=== PATIENT | female | born 2000 | race Caucasian/White ===

== ENCOUNTER 2019-10-02 05:03 | Emergency (ER) | payer SELFPAY ==
[2019-10-02 05:25] VITALS: O2SAT 99
[2019-10-02] MEDS ORDERED: Zofran 4 MG/2 ML VIAL IV ONE (05:32)
[2019-10-02] MEDS ORDERED: PROTONIX 40 MG IV IV ONE ×2 (05:32→05:38)
[2019-10-02] MEDS ORDERED: Sodium Chloride 0.9% 1000 ML 1,000 ML IV STA (05:32)
[2019-10-02] MEDS ORDERED: BENADRYL 50 MG/ML IV ONE (05:32)
--- NOTE | 2019-10-02 05:32 | ERPHSYRPT ---
- History of Present Illness Time Seen by Provider: 10/02/19 05:34 Historian: patient Exam Limitations: no limitations Patient Subjective Stated Complaint: "My stomach hurts. Its right in the middle of my back and coming around to the front." Triage Nursing Assessment: Pt presented alert et oriented with obvious distress of pain noted by abdominal guarding. Pt reported acute onset abdominal pain that radiated from her middle back around to the URQ/ULQ. Pt reported associated nasuea and vomiting with a single episode of diarrhea the day prior. Pt denied dysuria. Pupils 3mm reactive. Neck supple non-tender. Symmetrical chest expansion. Heart tones regular/clear S1/S2. Lungs clear with adequate airflow. Abdomen obese non-distended. Bowel sounds present throughout all quadrants. Tenderness noted to palpation of the upper quadrants. Radial pulses equal bilateral. No noted dependent edema. Physician History: "My stomach hurts. Its right in the middle of my back and coming around to the front." Pt reported acute onset abdominal pain that radiated from her middle back around to the URQ/ULQ. Pt reported associated nasuea and vomiting with a single episode of diarrhea the day prior. Pt denied dysuria. No fever, no chills, Timing/Duration: today Quality: cramping Abdominal Pain Onset Location: flank Pain Radiation: LLQ Severity of Pain-Max: moderate Severity of Pain-Current: moderate Associated Symptoms: loss of appetite, nausea, vomiting Previous symptoms: no prior history Allergies/Adverse Reactions: No Known Drug Allergies Allergy (Unverified 10/02/19 05:13) Home Medications: Ibuprofen 1 tab PO DAILY PRN 10/02/19 [History] Sertraline HCl 1 tab PO DAILY 10/02/19 [History] Hx Tetanus, Diphtheria Vaccination/Date Given: Yes Hx Influenza Vaccination/Date Given: No Travel Risk - International Travel Have you traveled outside of the country in past 3 weeks: No - Coronavirus Screening Are you exhibiting any of the following symptoms?: No Close contact with a COVID-19 positive Pt in past 14-21 Days: No - Review of Systems Constitutional: No Symptoms Eyes: No Symptoms Ears, Nose, & Throat: No Symptoms Respiratory: No Symptoms Cardiac: No Symptoms Abdominal/Gastrointestinal: Abdominal Pain, Nausea, Vomiting Genitourinary Symptoms: No Symptoms Musculoskeletal: No Symptoms Skin: No Symptoms Neurological: No Symptoms Endocrine: No Symptoms Hematologic/Lymphatic: No Symptoms Immunological/Allergic: No Symptoms - Past Medical History Psycho-Social History: Depression - Past Surgical History Past Surgical History: No - Social History Smoking Status: Current every day smoker Exposure to second hand smoke: Yes Drug Use: none Patient Lives Alone: No - Female History Hx Now: No - Nursing Vital Signs Nursing Vital Signs: Initial Vital Signs Temperature 97.5 F 10/02/19 05:05 Pulse Rate 75 10/02/19 05:05 Respiratory Rate 20 10/02/19 05:05 Blood Pressure 146/99 10/02/19 05:05 O2 Sat by Pulse Oximetry 99 10/02/19 05:05 Pain Scale Pain Intensity 4 - Physical Exam General Appearance: mild distress Eye Exam: PERRL/EOMI Ears, Nose, Throat Exam: normal ENT inspection Neck Exam: normal inspection Respiratory Exam: normal breath sounds Cardiovascular Exam: regular rate/rhythm Gastrointestinal/Abdomen Exam: soft, tenderness (left flank area) Pelvic Exam: not done Rectal Exam: deferred Back Exam: normal inspection Extremity Exam: normal inspection Neurologic Exam: alert, oriented x 3 Skin Exam: normal color SpO2 Interpretation: normal SpO2: 99 O2 Delivery: Room Air - Course Nursing assessment & vital signs reviewed: Yes Ordered Tests: Active Orders 24 hr Category Date Time Status AMYLASE Stat Lab 10/02/19 05:40 Completed CBC W DIFF Stat Lab 10/02/19 05:40 Completed CMP Stat Lab 10/02/19 05:40 Completed CULTURE,URINE Stat Lab 10/02/19 05:40 Received HCG,QUALITATIVE URINE Stat Lab 10/02/19 05:40 Completed LIPASE Stat Lab 10/02/19 05:40 Completed Lactic Acid Stat Lab 10/02/19 05:43 Completed UA W/RFX UR CULTURE Stat Lab 10/02/19 05:40 Completed Medication Summary Generic Name Dose Route Start Last Admin Trade Name Freq PRN Reason Stop Dose Admin Sodium Chloride 1,000 mls @ 999 mls/hr 10/02/19 05:32 10/02/19 05:42 Sodium Chloride 0.9% 1000 Ml IV 10/02/19 06:32 999 mls/hr .Q1H1M STA Administration Ceftriaxone Sodium/Dextrose 1 g in 50 mls @ 100 mls/hr 10/02/19 06:02 10/02/19 06:07 Rocephin 1 Gm-D5w 50 Ml Bag IV 10/02/19 06:31 100 mls/hr STAT STA 100 mls/hr Administration Discontinued Medications Generic Name Dose Route Start Last Admin Trade Name Kathleen PRN Reason Stop Dose Admin Diphenhydramine HCl 25 mg 10/02/19 05:32 10/02/19 05:41 Benadryl 50 Mg/Ml IV 10/02/19 05:33 25 mg STAT ONE Administration Diphenhydramine HCl Confirm 10/02/19 05:38 Benadryl 50 Mg/Ml Administered 10/02/19 05:39 Dose 50 mg .ROUTE .STK-MED ONE Sodium Chloride Confirm 10/02/19 05:38 Sodium Chloride 0.9% 1000 Ml Administered 10/02/19 05:39 Dose 1,000 mls @ ud .ROUTE .STK-MED ONE Ceftriaxone Sodium/Dextrose Confirm 10/02/19 06:03 Rocephin 1 Gm-D5w 50 Ml Bag Administered 10/02/19 06:04 Dose 1 g in 50 mls @ ud IV .STK-MED ONE Ondansetron HCl 4 mg 10/02/19 05:32 10/02/19 05:41 Zofran 4 Mg/2 Ml Vial IV 10/02/19 05:33 4 mg STAT ONE Administration Ondansetron HCl Confirm 10/02/19 05:38 Zofran 4 Mg/2 Ml Vial Administered 10/02/19 05:39 Dose 4 mg .ROUTE .STK-MED ONE Pantoprazole Sodium 40 mg 10/02/19 05:32 10/02/19 05:41 Protonix 40 Mg Iv IV 10/02/19 05:33 40 mg STAT ONE Administration Pantoprazole Sodium Confirm 10/02/19 05:38 Protonix 40 Mg Iv Administered 10/02/19 05:39 Dose 40 mg IV .STK-MED ONE Lab/Rad Data: Laboratory Result Diagrams 10/02/19 05:40 10/02/19 05:40 Laboratory Results 10/02/19 10/02/19 10/02/19 Range/Units 05:43 05:40 05:40 WBC (4.0-10.5) K/mm3 RBC (4.1-5.4) M/mm3 Hgb (12.0-16.0) gm/dl Hct (35-47) % MCV (78-100) fl MCH (26-32) pg MCHC (32-36) g/dl RDW (11.5-14.0) % Plt Count (150-450) K/mm3 MPV (7.5-11.0) fl Gran % (36.0-66.0) % Eos # (Auto) (0-0.5) Absolute Lymphs (auto) (1.0-4.6) Absolute Monos (auto) (0.0-1.3) Lymphocytes % (24.0-44.0) % Monocytes % (0.0-12.0) % Eosinophils % (0.00-5.0) % Basophils % (0.0-0.4) % Absolute Granulocytes (1.4-6.9) Basophils # (0-0.4) Sodium (137-145) mmol/L Potassium (3.5-5.1) mmol/L Chloride (98-107) mmol/L Carbon Dioxide (22-30) mmol/L Anion Gap (5-15) MEQ/L BUN (7-17) mg/dL Creatinine (0.52-1.04) mg/dL Estimated GFR ML/MIN Glucose (74-106) mg/dL Lactic Acid 0.6 (0.4-2.0) Calcium (8.4-10.2) mg/dL Total Bilirubin (0.2-1.3) mg/dL AST (14-36) U/L ALT (0-35) U/L Alkaline Phosphatase (38-126) U/L Serum Total Protein (6.3-8.2) g/dL Albumin (3.5-5.0) g/dL Amylase (30-110) U/L Lipase (23-300) U/L Urine Color NEAV (YELLOW) Urine Appearance CLOUDY (CLEAR) Urine pH 6.0 (5-6) Ur Specific [place] 1.026 (1.005-1.025) Urine Protein 30 (Negative) Urine Ketones NEGATIVE (NEGATIVE) Urine Blood MODERATE (0-5) Tate/ul Urine Nitrite POSITIVE (NEGATIVE) Urine Bilirubin NEGATIVE (NEGATIVE) Urine Urobilinogen 4 (0-1) mg/dL Ur Leukocyte Esterase LARGE (NEGATIVE) Urine WBC (Auto) >100 (0-5) /HPF Urine RBC (Auto) 3-5 (0-2) /HPF U Epithel Cells (Auto) PACKED (FEW) /HPF Urine Bacteria (Auto) MODERATE (NEGATIVE) /HPF U Non-Squamous Epi Cells RARE (FEW) /HPF Urine Mucus (Auto) MODERATE (NEGATIVE) /HPF Urine Culture Reflexed YES (NO) Urine Glucose NEGATIVE (NEGATIVE) mg/dL Urine HCG, Qual NEGATIVE (Negative) 10/02/19 10/02/19 Range/Units 05:40 05:40 WBC 9.8 (4.0-10.5) K/mm3 RBC 4.91 (4.1-5.4) M/mm3 Hgb 14.2 (12.0-16.0) gm/dl Hct 42.7 (35-47) % MCV 87.0 (78-100) fl MCH 28.9 (26-32) pg MCHC 33.3 (32-36) g/dl RDW 12.9 (11.5-14.0) % Plt Count 164 (150-450) K/mm3 MPV 11.9 H (7.5-11.0) fl Gran % 54.6 (36.0-66.0) % Eos # (Auto) 0.70 H (0-0.5) Absolute Lymphs (auto) 2.96 (1.0-4.6) Absolute Monos (auto) 0.73 (0.0-1.3) Lymphocytes % 30.3 (24.0-44.0) % Monocytes % 7.5 (0.0-12.0) % Eosinophils % 7.2 H (0.00-5.0) % Basophils % 0.4 (0.0-0.4) % Absolute Granulocytes 5.33 (1.4-6.9) Basophils # 0.04 (0-0.4) Sodium 140 (137-145) mmol/L Potassium 3.4 L (3.5-5.1) mmol/L Chloride 108 H (98-107) mmol/L Carbon Dioxide 24 (22-30) mmol/L Anion Gap 10.8 (5-15) MEQ/L BUN 11 (7-17) mg/dL Creatinine 0.82 (0.52-1.04) mg/dL Estimated GFR > 60.0 ML/MIN Glucose 124 H (74-106) mg/dL Lactic Acid (0.4-2.0) Calcium 9.4 (8.4-10.2) mg/dL Total Bilirubin 0.50 (0.2-1.3) mg/dL AST 21 (14-36) U/L ALT 22 (0-35) U/L Alkaline Phosphatase 114 (38-126) U/L Serum Total Protein 7.1 (6.3-8.2) g/dL Albumin 4.0 (3.5-5.0) g/dL Amylase 42 (30-110) U/L Lipase 62 (23-300) U/L Urine Color (YELLOW) Urine Appearance (CLEAR) Urine pH (5-6) Ur Specific [place] (1.005-1.025) Urine Protein (Negative) Urine Ketones (NEGATIVE) Urine Blood (0-5) Tate/ul Urine Nitrite (NEGATIVE) Urine Bilirubin (NEGATIVE) Urine Urobilinogen (0-1) mg/dL Ur Leukocyte Esterase (NEGATIVE) Urine WBC (Auto) (0-5) /HPF Urine RBC (Auto) (0-2) /HPF U Epithel Cells (Auto) (FEW) /HPF Urine Bacteria (Auto) (NEGATIVE) /HPF U Non-Squamous Epi Cells (FEW) /HPF Urine Mucus (Auto) (NEGATIVE) /HPF Urine Culture Reflexed (NO) Urine Glucose (NEGATIVE) mg/dL Urine HCG, Qual (Negative) - Progress Progress: improved Counseled pt/family regarding: lab results, diagnosis, need for follow-up - Departure Departure Disposition: Home Clinical Impression: Pyelonephritis Condition: Stable Critical Care Time: No Referrals: DOCTOR,NO FAMILY [Primary Care Provider] - Instructions: Kidney Infection, Urinary Tract Infection, Adult (DC) Additional Instructions: Discharge/Care Plan SOO HULL was seen on 10/02/19 in the Emergency Room. The patient was counseled regarding Diagnosis,Lab results, Imaging studies, need for follow up and when to return to the Emergency Room. Prescriptions given: Discharge Note I have spoken with the patient and/or caregivers. I have explained the patient's condition, diagnosis and treatment plan based on the information available to me at this time. I have answered the patient's and/or caregiver's questions and a ddressed any concerns. The patient and/or caregivers have as good understanding of the patient's diagnosis, condition and treatment plan as can be expected at this point. The vital signs have been stable. The patient's condition is stable and appropriate for discharge from the emergency department. The patient will pursue further outpatient evaluation with the primary care physician or other designated or consulting physician as outlined in the discharge instructions. The patient and/or caregivers are agreeable to this plan of care and follow-up instructions have been explained in detail. The patient and/or caregivers have received these instruction. The patient/and or caregivers are aware that any significant change in condition or worsening of symptoms should prompt an immediate return to this or the closest emergency department or call 911. SOO HULL was seen on 10/02/19 n the Emergency Room. At that time you were treated for an emergent condition, during your visit Laboratory, Radiology and/or other procedures may have been ordered. It is very important that you follow-up with your Primary Care Physician NO FAMILY DOCTOR within the next 24- 48 hours to review your Emergency Room visit and the final results of testing that was ordered. Some test results such as Urine Cultures, Blood Cultures, and other cultures if ordered will not be finalized for 24-48 hours. If you do not have a Primary Care Provider please call the medical records department at [phone] ext [phone] to obtain a copy of your results or you may sign into our patient portal to obtain these results by visiting us @ [email or web address] and completing the following steps: 1. Click on the Patient Portal link 2. Click the Patient Self Enrollment Link to complete the enrollment form and entering your 3. Once the enrollment form is completed you will receive an email with a tempor rowena ID and password at the email address you provided. 4. Next choose a user name and password. Your user name must be at least 4 characters long and your password must be at least 4 characters long. 5. Choose a security question from the list and provide your answer to the question. If you already have signed into the Health Portal you may access your Health Care Information 07/10 by the following steps: 1. Login to our website @ [email or web address] 2. Enter your original user name and password. FAQS The [facility] Portal is an online tool that contains your Lab Results, Radiology Reports, Visit History, Discharge Instructions and Health Summary Lab and Radiology Results will not be available for 72 hours on the portal. The Portal is a secure site, passwords are encryted and URLs are re-written so they cannot be copied and pasted. You and authorized family members are the only ones who can access your Portal. Also there is a timeout feature that protects your information if you leave the Portal page open. If you have technical difficulty please use the Contact Us link on the page this will allow you to submit any questions you have regarding the Portal or you may contact the Medical Record Department at [phone] ext [phone]. Prescriptions: Smz/Tmp Ds Tablet [Bactrim Ds Tablet] 1 udtab PO BID #20 tablet
[2019-10-02] MEDS ORDERED: BENADRYL 50 MG/ML ONE (05:38)
[2019-10-02] MEDS ORDERED: Zofran 4 MG/2 ML VIAL ONE (05:38)
[2019-10-02] MEDS ORDERED: Sodium Chloride 0.9% 1000 ML 1,000 ML ONE (05:38)
[2019-10-02 05:42] LABS: Absolute Neutrophil Ct (ANC) 5.33 (1.4-6.9); BASOPHIL % 0.4 % (0.0-0.4); Basophil (Absolute #) 0.04 (0-0.4); Eosinophil % 7.2 % (0.00-5.0); Hematocrit 42.7 % (35-47); Hemoglobin 14.2 gm/dl (12.0-16.0); Lymphocyte (Absolute #) 2.96 (1.0-4.6); Lymphocytes % 30.3 % (24.0-44.0); Mean Corpuscular Hemoglobin 28.9 pg (26-32); Mean Corpuscular Hgb Concent. 33.3 g/dl (32-36); Mean Platelet Volume 11.9 fl (7.5-11.0); Monocyte (Absolute #) 0.73 (0.0-1.3); Monocytes % 7.5 % (0.0-12.0); Neutrophil % 54.6 % (36.0-66.0); Platelet Count 164 K/mm3 (150-450); Red Blood Count 4.91 M/mm3 (4.1-5.4); Red Cell Distribution Width 12.9 % (11.5-14.0); White Blood Count 9.8 K/mm3 (4.0-10.5)
[2019-10-02 05:47] LABS: Appearance CLOUDY (CLEAR); Bacteria MODERATE /HPF (NEGATIVE); Bilirubin NEGATIVE (NEGATIVE); Blood MODERATE Ery/ul (0-5); Epithelial Cells PACKED /HPF (FEW); Glucose NEGATIVE (NEGATIVE); Ketones NEGATIVE (NEGATIVE); Leukocyte Esterase LARGE (NEGATIVE); Mucus MODERATE /HPF (NEGATIVE); Nitrite POSITIVE (NEGATIVE); Non-Squamous Epithelial Cells RARE /HPF (FEW); Protein,Urine Dip 30 (Negative); Specific Gravity 1.026 (1.005-1.025); Urobilinogen 4 mg/dL (0-1); WBC >100 /HPF (0-5)
[2019-10-02 05:53] LABS: ALKALINE PHOSPHATASE 114 U/L (38-126); AMYLASE 42 U/L (30-110); ANION GAP 10.8 MEQ/L (5-15); BLOOD UREA NITROGEN 11 mg/dL (7-17); CHLORIDE 108 mmol/L (98-107); Calcium 9.4 mg/dL (8.4-10.2); Carbon Dioxide 24 mmol/L (22-30); Creatinine 1 0.82 mg/dL (0.52-1.04); Glucose 124 mg/dL (74-106); LIPASE 62 U/L (23-300); Potassium 3.4 mmol/L (3.5-5.1); SGOT/AST 21 U/L (14-36); SGPT/ALT 22 U/L (0-35); SODIUM 140 mmol/L (137-145); Total Protein 7.1 g/dL (6.3-8.2)
[2019-10-02] MEDS ORDERED: ROCEPHIN 1 Gm-D5w 50 ml Bag** 1 G/50 ML IVPB IV STA (06:02)
[2019-10-02] MEDS ORDERED: ROCEPHIN 1 Gm-D5w 50 ml Bag** 1 G/50 ML IVPB IV ONE (06:03)
[2019-10-02 06:47] VITALS: BP 138/80; PULSE 86
== END 2019-10-02 06:47 | disposition home or self-care (01) ==
LOC: ED 05:03
DX: N12 Tubulo-interstitial nephritis, not specified as acute or chronic (principal)
CPT/HCPCS: 36000; 36415; 80053; 81001; 82150; 83605; 83690; 84703; 85025; 87077; 87086; 87186; 96360; 96365; 96374; 96375; 99284; J0696; J1200; J2405

== ENCOUNTER 2020-08-07 08:10 | Emergency (ER) | payer OTHER ==
[2020-08-07] MEDS ORDERED: Zofran 4 MG/2 ML VIAL IV ONE (08:30)
[2020-08-07] MEDS ORDERED: MORPHINE SULFATE 2 MG INJ IV ONE (08:30)
[2020-08-07] MEDS ORDERED: Sodium Chloride 0.9% 1000 ML 1,000 ML IV STA (08:30)
[2020-08-07] MEDS ORDERED: Sodium Chloride 0.9% 1000 ML 1,000 ML ONE (08:36)
[2020-08-07] MEDS ORDERED: MORPHINE SULFATE 2 MG INJ ONE (08:36)
[2020-08-07] MEDS ORDERED: Zofran 4 MG/2 ML VIAL ONE (08:36)
--- NOTE | 2020-08-07 08:38 | ERPHSYRPT ---
- History of Present Illness Time Seen by Provider: 08/07/20 08:25 Historian: patient Exam Limitations: no limitations Patient Subjective Stated Complaint: Pt states that she was a cookout last night and ate approx 5 hamburgers and 5 hotdogs and then went home and ate an entire bag of chips and thinks now that she ate too much because she has been vomiting since 0400 Triage Nursing Assessment: Pt brought to the ER by her mother, vitals wnl, rates abd pain as 8/10, no edema, pulses normal, N&V, abdomal pain to the medial upper quadrants Physician History: Patient is a 20-year-old female presents to our emergency department with complaints of abdominal pain nausea and vomiting. Patient states she had 5 hamburgers 5 hotdogs and complete bag of chips. At 4:00 this morning patient abdominal pain started. Patient had nausea and vomiting. Patient states her stools are somewhat loose. No fever. No trauma. Symptoms are constant. Symptoms are moderate in intensity. Abdominal pain described as an ache that is generalized. No specific worsening improving factors. Patient is otherwise generally healthy. Patient voices no other complaints or concerns at this time. Timing/Duration: today Activities at Onset: none Quality: aching Abdominal Pain Onset Location: generalized abdomen Pain Radiation: no radiation Severity of Pain-Max: moderate Severity of Pain-Current: mild Modifying Factors: Improves With: nothing Associated Symptoms: denies symptoms, nausea, vomiting, No chest pain, No fever/chills, No headache, No heartburn, No weakness Previous symptoms: no prior history Allergies/Adverse Reactions: No Known Drug Allergies Allergy (Verified 08/07/20 08:29) Home Medications: No Reportable Medications [No Reported Medications] 08/07/20 [History] Hx Tetanus, Diphtheria Vaccination/Date Given: Yes Hx Influenza Vaccination/Date Given: No Travel Risk - International Travel Have you traveled outside of the country in past 3 weeks: No - Coronavirus Screening Are you exhibiting any of the following symptoms?: No Close contact with a COVID-19 positive Pt in past 14-21 Days: No - Vaccine Status Have you recieved a Covid-19 vaccination: No - Review of Systems Constitutional: No Symptoms, No Fever, No Chills Eyes: No Symptoms Ears, Nose, & Throat: No Symptoms Respiratory: No Symptoms, No Cough, No Dyspnea Cardiac: No Symptoms, No Chest Pain, No Edema, No Syncope Abdominal/Gastrointestinal: No Symptoms, No Abdominal Pain, No Nausea, No Vomiting, No Diarrhea Genitourinary Symptoms: No Symptoms, No Dysuria Musculoskeletal: No Symptoms, No Back Pain, No Neck Pain Skin: No Symptoms, No Rash Neurological: No Symptoms, No Dizziness, No Focal Weakness, No Sensory Changes Psychological: No Symptoms Endocrine: No Symptoms Hematologic/Lymphatic: No Symptoms Immunological/Allergic: No Symptoms All Other Systems: Reviewed and Negative - Past Medical History Pertinent Past Medical History: Yes Neurological History: Seizures Psycho-Social History: Depression - Past Surgical History Past Surgical History: No - Social History Smoking Status: Current every day smoker Exposure to second hand smoke: Yes Drug Use: none Patient Lives Alone: No - Female History Hx Now: No (marana) - Nursing Vital Signs Nursing Vital Signs: Initial Vital Signs Temperature 97.5 F 08/07/20 08:21 Pulse Rate 87 08/07/20 08:21 Blood Pressure 126/97 08/07/20 08:21 O2 Sat by Pulse Oximetry 96 08/07/20 08:21 Pain Scale Pain Intensity 2 - Physical Exam General Appearance: mild distress, alert Eye Exam: PERRL/EOMI, eyes nml inspection Ears, Nose, Throat Exam: normal ENT inspection, pharynx normal, moist mucous membranes Neck Exam: normal inspection, non-tender, supple, full range of motion Respiratory Exam: normal breath sounds, lungs clear, No respiratory distress Cardiovascular Exam: regular rate/rhythm, normal heart sounds Gastrointestinal/Abdomen Exam: soft, No tenderness, No mass Back Exam: normal inspection, normal range of motion, No CVA tenderness, No vertebral tenderness Extremity Exam: normal inspection, normal range of motion, pelvis stable Neurologic Exam: alert, oriented x 3, cooperative, normal mood/affect, nml cerebellar function, sensation nml, No motor deficits Skin Exam: normal color, warm, dry SpO2 Interpretation: normal SpO2: 96 O2 Delivery: Room Air - Course Nursing assessment & vital signs reviewed: Yes - CT Exams Chest CT Interpretation: Tele-radiologist Report (Indeterminate left lung noncalcified micronodules. Nodules are too small for PET scan/CT. Recommend follow-up for Fleischner guidelines) Abdomen/Pelvis CT Interpretation: Tele-radiologist Report (Mild bladder wall thickening without cholelithiasis. Gallbladder sonogram you have further information. Minimal colonic diverticulosis and splenomegaly. Small indeterminate left lower lobe noncalcified nodule. Outside comparison studies recommended if available.) - Radiology Ultrasound Exam Gallbladder Ultrasound: tele radiology report (Cholelithiasis with wall thickening. Rule out chronic cholecystitis. Nonvisualization pancreas and right kidney.) Ordered Tests: Active Orders 24 hr Category Date Time Status IV Insertion STAT Care 08/07/20 08:30 Active ABDOMEN AND PELVIS W CONTRAST [CT] Stat Exams 08/07/20 08:31 Completed CHEST WITHOUT CONTRAST [CT] Stat Exams 08/07/20 10:35 Completed GALLBLADDER [US] Stat Exams 08/07/20 10:34 Completed CBC W DIFF Stat Lab 08/07/20 08:42 Completed CMP Stat Lab 08/07/20 08:42 Completed HCG,QUALITATIVE URINE Stat Lab 08/07/20 09:32 Completed LIPASE Stat Lab 08/07/20 08:42 Completed TROPONIN Q3H Lab 08/07/20 08:42 Completed UA W/RFX UR CULTURE Stat Lab 08/07/20 09:32 Completed Medication Summary Discontinued Medications Generic Name Dose Route Start Last Admin Trade Name Darylq PRN Reason Stop Dose Admin Sodium Chloride 1,000 mls @ 999 mls/hr 08/07/20 08:30 08/07/20 10:21 Sodium Chloride 0.9% 1000 Ml IV 08/07/20 09:30 Infused .Q1H1M STA Infusion Sodium Chloride Confirm 08/07/20 08:36 Sodium Chloride 0.9% 1000 Ml Administered 08/07/20 08:37 Dose 1,000 mls @ ud .ROUTE .STK-MED ONE Morphine Sulfate 2 mg 08/07/20 08:30 08/07/20 08:40 Morphine Sulfate 2 Mg Inj IV 08/07/20 08:31 2 mg STAT ONE Administration Morphine Sulfate Confirm 08/07/20 08:36 Morphine Sulfate 2 Mg Inj Administered 08/07/20 08:37 Dose 2 mg .ROUTE .STK-MED ONE Ondansetron HCl 4 mg 08/07/20 08:30 08/07/20 08:40 Zofran 4 Mg/2 Ml Vial IV 08/07/20 08:31 4 mg STAT ONE Administration Ondansetron HCl Confirm 08/07/20 08:36 Zofran 4 Mg/2 Ml Vial Administered 08/07/20 08:37 Dose 4 mg .ROUTE .STK-MED ONE Lab/Rad Data: Laboratory Result Diagrams 08/07/20 08:42 08/07/20 08:42 Laboratory Results 08/07/20 08/07/20 08/07/20 Range/Units 09:32 09:32 08:42 WBC (4.0-10.5) K/mm3 RBC (4.1-5.4) M/mm3 Hgb (12.0-16.0) gm/dl Hct (35-47) % MCV (78-100) fl MCH (26-32) pg MCHC (32-36) g/dl RDW (11.5-14.0) % Plt Count (150-450) K/mm3 MPV (7.5-11.0) fl Gran % (36.0-66.0) % Eos # (Auto) (0-0.5) Absolute Lymphs (auto) (1.0-4.6) Absolute Monos (auto) (0.0-1.3) Lymphocytes % (24.0-44.0) % Monocytes % (0.0-12.0) % Eosinophils % (0.00-5.0) % Basophils % (0.0-0.4) % Absolute Granulocytes (1.4-6.9) Basophils # (0-0.4) Sodium (137-145) mmol/L Potassium (3.5-5.1) mmol/L Chloride (98-107) mmol/L Carbon Dioxide (22-30) mmol/L Anion Gap (5-15) MEQ/L BUN (7-17) mg/dL Creatinine (0.52-1.04) mg/dL Estimated GFR ML/MIN Glucose (74-106) mg/dL Calcium (8.4-10.2) mg/dL Total Bilirubin (0.2-1.3) mg/dL AST (14-36) U/L ALT (0-35) U/L Alkaline Phosphatase (38-126) U/L Troponin I < 0.012 (0.000-0.034) ng/mL Serum Total Protein (6.3-8.2) g/dL Albumin (3.5-5.0) g/dL Lipase (23-300) U/L Urine Color YELLOW (YELLOW) Urine Appearance SLIGHTLY CLOUDY (CLEAR) Urine pH 7.0 (5-6) Ur Specific Elizabeth 1.017 (1.005-1.025) Urine Protein NEGATIVE (Negative) Urine Ketones NEGATIVE (NEGATIVE) Urine Blood NEGATIVE (0-5) Tate/ul Urine Nitrite NEGATIVE (NEGATIVE) Urine Bilirubin NEGATIVE (NEGATIVE) Urine Urobilinogen NEGATIVE (0-1) mg/dL Ur Leukocyte Esterase SMALL (NEGATIVE) Urine WBC (Auto) 0-2 (0-5) /HPF Urine RBC (Auto) 0-2 (0-2) /HPF U Epithel Cells (Auto) FEW (FEW) /HPF Urine Bacteria (Auto) FEW (NEGATIVE) /HPF Urine Mucus (Auto) SLIGHT (NEGATIVE) /HPF Urine Culture Reflexed NO (NO) Urine Glucose NEGATIVE (NEGATIVE) mg/dL Urine HCG, Qual NEGATIVE (Negative) 08/07/20 08/07/20 Range/Units 08:42 08:42 WBC 6.1 (4.0-10.5) K/mm3 RBC 5.26 (4.1-5.4) M/mm3 Hgb 15.1 (12.0-16.0) gm/dl Hct 45.9 (35-47) % MCV 87.3 (78-100) fl MCH 28.7 (26-32) pg MCHC 32.9 (32-36) g/dl RDW 12.7 (11.5-14.0) % Plt Count 167 (150-450) K/mm3 MPV 12.0 H (7.5-11.0) fl Gran % 58.5 (36.0-66.0) % Eos # (Auto) 0.30 (0-0.5) Absolute Lymphs (auto) 1.65 (1.0-4.6) Absolute Monos (auto) 0.57 (0.0-1.3) Lymphocytes % 27.0 (24.0-44.0) % Monocytes % 9.3 (0.0-12.0) % Eosinophils % 4.9 (0.00-5.0) % Basophils % 0.3 (0.0-0.4) % Absolute Granulocytes 3.56 (1.4-6.9) Basophils # 0.02 (0-0.4) Sodium 139 (137-145) mmol/L Potassium 4.2 (3.5-5.1) mmol/L Chloride 103 (98-107) mmol/L Carbon Dioxide 26 (22-30) mmol/L Anion Gap 13.9 (5-15) MEQ/L BUN 11 (7-17) mg/dL Creatinine 0.80 (0.52-1.04) mg/dL Estimated GFR > 60.0 ML/MIN Glucose 121 H (74-106) mg/dL Calcium 9.5 (8.4-10.2) mg/dL Total Bilirubin 0.30 (0.2-1.3) mg/dL AST 24 (14-36) U/L ALT 37 H (0-35) U/L Alkaline Phosphatase 83 (38-126) U/L Troponin I (0.000-0.034) ng/mL Serum Total Protein 7.1 (6.3-8.2) g/dL Albumin 4.5 (3.5-5.0) g/dL Lipase 35 (23-300) U/L Urine Color (YELLOW) Urine Appearance (CLEAR) Urine pH (5-6) Ur Specific Elizabeth (1.005-1.025) Urine Protein (Negative) Urine Ketones (NEGATIVE) Urine Blood (0-5) Tate/ul Urine Nitrite (NEGATIVE) Urine Bilirubin (NEGATIVE) Urine Urobilinogen (0-1) mg/dL Ur Leukocyte Esterase (NEGATIVE) Urine WBC (Auto) (0-5) /HPF Urine RBC (Auto) (0-2) /HPF U Epithel Cells (Auto) (FEW) /HPF Urine Bacteria (Auto) (NEGATIVE) /HPF Urine Mucus (Auto) (NEGATIVE) /HPF Urine Culture Reflexed (NO) Urine Glucose (NEGATIVE) mg/dL Urine HCG, Qual (Negative) - Progress Progress: improved Progress Note: Patient reassessed. She feels much better. Pain significantly improved. Patient denies pain at this time. Work-up suggestive of possible chronic cholecystitis. Case discussed with Dr. Nacho Saldana. He also agrees that patient likely has chronic cholecystitis. No indication for admission or emergent intervention. He will see patient on an outpatient basis. Dr. Saldana's contact information was provided to patient. Patient requesting discharge. Mother at bedside. They were informed of all findings laboratory and imaging study. Will discharge at this time. Patient/mother voices no other complaints or concerns at this time. 05/24/21 13:[address] Other Will see patient in: office (Spoke to Dr. Nacho Saldana) Counseled pt/family regarding: lab results, diagnosis, need for follow-up, rad results - Departure Departure Disposition: Home Clinical Impression: Lung nodule, Abdominal pain, Diverticulosis, Splenomegaly, Arthritis, lumbar spine, Hyperglycemia, Cholelithiasis, Chronic cholecystitis Condition: Stable Critical Care Time: No Referrals: DOCTOR,NO FAMILY [Primary Care Provider] - NATTY SALDANA MD [ASSOCIATE STAFF] -
[2020-08-07 08:45] LABS: Absolute Neutrophil Ct (ANC) 3.56 (1.4-6.9); BASOPHIL % 0.3 % (0.0-0.4); Basophil (Absolute #) 0.02 (0-0.4); Eosinophil % 4.9 % (0.00-5.0); Hematocrit 45.9 % (35-47); Hemoglobin 15.1 gm/dl (12.0-16.0); Lymphocyte (Absolute #) 1.65 (1.0-4.6); Mean Cell Volume 87.3 fl (78-100); Mean Corpuscular Hemoglobin 28.7 pg (26-32); Mean Corpuscular Hgb Concent. 32.9 g/dl (32-36); Monocyte (Absolute #) 0.57 (0.0-1.3); Monocytes % 9.3 % (0.0-12.0); Neutrophil % 58.5 % (36.0-66.0); Platelet Count 167 K/mm3 (150-450); Red Blood Count 5.26 M/mm3 (4.1-5.4); Red Cell Distribution Width 12.7 % (11.5-14.0); White Blood Count 6.1 K/mm3 (4.0-10.5)
[2020-08-07 08:58] LABS: ALBUMIN 4.5 g/dL (3.5-5.0); ALKALINE PHOSPHATASE 83 U/L (38-126); ANION GAP 13.9 MEQ/L (5-15); BLOOD UREA NITROGEN 11 mg/dL (7-17); CHLORIDE 103 mmol/L (98-107); Calcium 9.5 mg/dL (8.4-10.2); Carbon Dioxide 26 mmol/L (22-30); EST GLOMERULAR FILTRATION RATE > 60.0 ML/MIN; Glucose 121 mg/dL (74-106); LIPASE 35 U/L (23-300); Potassium 4.2 mmol/L (3.5-5.1); SGOT/AST 24 U/L (14-36); SGPT/ALT 37 U/L (0-35); SODIUM 139 mmol/L (137-145); Total Protein 7.1 g/dL (6.3-8.2)
[2020-08-07 09:49] LABS: Appearance SLIGHTLY CLOUDY (CLEAR); Bacteria FEW /HPF (NEGATIVE); Bilirubin NEGATIVE (NEGATIVE); Blood NEGATIVE Ery/ul (0-5); Epithelial Cells FEW /HPF (FEW); Glucose NEGATIVE (NEGATIVE); Ketones NEGATIVE (NEGATIVE); Leukocyte Esterase SMALL (NEGATIVE); Mucus SLIGHT /HPF (NEGATIVE); Nitrite NEGATIVE (NEGATIVE); Protein,Urine Dip NEGATIVE (Negative); RBC 0-2 /HPF (0-2); Specific Gravity 1.017 (1.005-1.025); Urobilinogen NEGATIVE mg/dL (0-1); WBC 0-2 /HPF (0-5)
--- NOTE | 2020-08-07 10:24 | XRAY ---
Indication: Diffuse abdominal pain. Nausea and vomiting. Multiple contiguous axial images obtained through the abdomen and pelvis using Isovue 370 contrast. Comparison: None Lung bases demonstrates 8 x 12 mm medial left lower lobe indeterminant noncalcified nodule. No infiltrate or effusion. Heart is not enlarged. Noncontrasted stomach and bowel loops nonobstructed. Normal appendix. Minimal scattered colonic diverticulosis without diverticulitis. Gallbladder normally distended with wall thickening 4-5 mm but no gallstones or biliary distention. No free fluid/air. Spleen is enlarged measuring 17 cm. Incidental uterine IUD. Remaining liver, pancreas, spleen, adrenal glands, kidneys, ureters, bladder, uterus, and aorta are unremarkable. No pathologic retroperitoneal lymphadenopathy. Osseous structures intact with mild/moderate T12-L1 degenerative degenerative changes. Impression: 1. Gallbladder wall thickening without cholelithiasis. Gallbladder sonogram may yield further information. 2. Minimal colonic diverticulosis and splenomegaly. 3. Small indeterminant left lower lobe noncalcified nodule. Outside comparison studies recommended if available. If not, recommend CT chest to establish baseline with follow-up per Fleischner guidelines.
--- NOTE | 2020-08-07 11:45 | XRAY ---
Indication: Abdomen pain. Cholecystitis. Two-dimensional gallbladder sonogram performed. Comparison: None Gallbladder normally distended with multiple centimeter/subcentimeter gallstones in the dependent portion and wall thickening 3.1 mm. No pericholecystic fluid. Common bile duct measures 4.6 mm. Nonvisualization of the pancreas due to overlying bowel gas. Remaining visualized liver sonographically unremarkable. Sheriff'S Officer did not record images of the right kidney. Impression: 1. Cholelithiasis with wall thickening. Rule out chronic cholecystitis. 2. Nonvisualization pancreas and right kidney.
--- NOTE | 2020-08-07 11:50 | XRAY ---
Indication: Left lower lobe nodule on same-day CT evidence/pelvis. Multiple contiguous axial images obtained through the chest without contrast. Comparison: None Medial left lower lobe demonstrates 8 x 12 mm, 5 mm mid left lower lobe (image 32), and 7 x 8 mm left upper lobe (image 18) indeterminant noncalcified nodules. No infiltrate, consolidation, or effusion. Heart is not enlarged. Aorta normal in course and caliber. No pathologic mediastinal lymphadenopathy. Bony thorax intact. CT abdomen/pelvis reported separately. Impression: 3 indeterminant left lung noncalcified micronodules. Nodules are too small for PET/CT. Recommend follow-up per Fleischner guidelines.
[2020-08-07 13:37] VITALS: BP 128/86; PULSE 75; O2SAT 99
== END 2020-08-07 13:46 | disposition home or self-care (01) ==
LOC: ED 08:10
DX: R91.1 Solitary pulmonary nodule (principal); R10.9 Unspecified abdominal pain; R16.1 Splenomegaly, not elsewhere classified; M46.96 Unspecified inflammatory spondylopathy, lumbar region; R73.9 Hyperglycemia, unspecified; K80.20 Calculus of gallbladder without cholecystitis without obstruction; K81.1 Chronic cholecystitis
CPT/HCPCS: 36000; 36415; 71250; 74177; 76705; 80053; 81001; 83690; 84484; 84703; 85025; 96360; 96374; 96375; 99284; J2270; J2405

== ENCOUNTER 2020-08-13 16:34 | Emergency (ER) | payer OTHER ==
[2020-08-13 16:48] VITALS: BP 121/75; PULSE 84; O2SAT 100
--- NOTE | 2020-08-13 16:50 | ERPHSYRPT ---
- History of Present Illness Time Seen by Provider: 08/13/20 16:45 Source: patient Exam Limitations: no limitations Physician History: pt is 20 yr old female with hx of prior UTIs , none recent, but now with similar symptoms to prior UTI . Dysuria, frequency, and feeling of need to go. No abd pain , but had episode 1 week ago with eval thought to be biliary Dx and with f/u scheduled for that , but no recurence of those symptoms and no abd pain, N, or V , or fever today. No cough or URI symptoms. No Vag discharge or symptoms. Abd is nontender without mass or peritoneal signs on exam today. Timing/Duration: today Activites at Onset: none Quality: burning Onset Location: suprapubic Pain Radiation: none Severity of Pain-Max: mild Severity of Pain-Current: mild Prior abdominal problems: other (Biliary symptoms las week none now.) Sexual intercourse history: non-contributory Modifying Factors: Improves With: nothing Associated Symptoms: dysuria, urinary frequency, No abdominal pain, No fever, No nausea, No vomiting, No vaginal discharge Allergies/Adverse Reactions: No Known Drug Allergies Allergy (Verified 08/13/20 16:48) Hx Tetanus, Diphtheria Vaccination/Date Given: Yes Hx Influenza Vaccination/Date Given: No Travel Risk - Vaccine Status Have you recieved a Covid-19 vaccination: No - Review of Systems Constitutional: No Fever, No Chills Eyes: No Symptoms Ears, Nose, & Throat: No Symptoms Respiratory: No Cough, No Dyspnea Cardiac: No Chest Pain, No Edema, No Syncope Abdominal/Gastrointestinal: No Abdominal Pain, No Nausea, No Vomiting, No Diarrhea Genitourinary Symptoms: Dysuria, Frequency, Urgency Musculoskeletal: No Back Pain, No Neck Pain Skin: No Rash Neurological: No Dizziness, No Focal Weakness, No Sensory Changes Psychological: No Symptoms Endocrine: No Symptoms Hematologic/Lymphatic: No Symptoms Immunological/Allergic: No Symptoms All Other Systems: Reviewed and Negative - Past Medical History Pertinent Past Medical History: Yes Neurological History: Seizures Psycho-Social History: Depression - Past Surgical History Past Surgical History: No - Social History Smoking Status: Current every day smoker Exposure to second hand smoke: Yes Drug Use: none Patient Lives Alone: No - Nursing Vital Signs Nursing Vital Signs: Initial Vital Signs Temperature 97.4 F 08/13/20 16:39 Pulse Rate 84 08/13/20 16:39 Blood Pressure 121/75 08/13/20 16:39 O2 Sat by Pulse Oximetry 100 08/13/20 16:39 Pain Scale Pain Intensity 4 - Physical Exam General Appearance: no apparent distress, alert Eye Exam: PERRL/EOMI, eyes nml inspection Ears, Nose, Throat Exam: normal ENT inspection, TMs normal, pharynx normal, moist mucous membranes Neck Exam: normal inspection, non-tender, supple, full range of motion Respiratory Exam: normal breath sounds, lungs clear, No respiratory distress Cardiovascular Exam: regular rate/rhythm, normal heart sounds, normal peripheral pulses Gastrointestinal/Abdomen Exam: soft, No tenderness, No mass Pelvic Exam: deferred Rectal Exam: deferred Back Exam: normal inspection, normal range of motion, No CVA tenderness, No vertebral tenderness Extremity Exam: normal inspection, normal range of motion, pelvis stable Neurologic Exam: alert, oriented x 3, cooperative, senior commissions analyst II-XII nml as tested, normal mood/affect, sensation nml, No motor deficits Skin Exam: normal color, warm, dry Lymphatic Exam: No adenopathy - Course Nursing assessment & vital signs reviewed: Yes Ordered Tests: Active Orders 24 hr Category Date Time Status CULTURE,URINE Stat Lab 08/13/20 16:53 Received HCG,QUALITATIVE URINE Stat Lab 08/13/20 16:53 Completed UA W/RFX UR CULTURE Stat Lab 08/13/20 16:53 Completed Lab/Rad Data: Laboratory Results 08/13/20 08/13/20 Range/Units 16:53 16:53 Urine Color YELLOW (YELLOW) Urine Appearance CLOUDY (CLEAR) Urine pH 6.0 (5-6) Ur Specific Cartwright 1.006 (1.005-1.025) Urine Protein NEGATIVE (Negative) Urine Ketones NEGATIVE (NEGATIVE) Urine Blood LARGE (0-5) Tate/ul Urine Nitrite NEGATIVE (NEGATIVE) Urine Bilirubin NEGATIVE (NEGATIVE) Urine Urobilinogen NEGATIVE (0-1) mg/dL Ur Leukocyte Esterase LARGE (NEGATIVE) Urine WBC (Auto) >100 (0-5) /HPF Urine RBC (Auto) 51-100 (0-2) /HPF U Epithel Cells (Auto) NONE (FEW) /HPF Urine Bacteria (Auto) RARE (NEGATIVE) /HPF Urine Culture Reflexed YES (NO) Urine Glucose NEGATIVE (NEGATIVE) mg/dL Urine HCG, Qual NEGATIVE (Negative) - Progress Progress: improved, re-examined Air Movement: good Progress Note: 08/13/20 17:17 took pill sounding like keflex capsule green and white ) before with good result Blood Culture(s) Obtained: No Antibiotics given: Yes Counseled pt/family regarding: lab results, diagnosis, need for follow-up - Departure Departure Disposition: Home Clinical Impression: UTI (urinary tract infection) Condition: Good Critical Care Time: No Referrals: DOCTOR,NO FAMILY [Primary Care Provider] - Instructions: Urinary Tract Infection, Adult (DC) Additional Instructions: Followup with your Dr. to retest after antibiotics to confirm resolution of infection. Return meantime if not improving, fever, vomiting, abdominal pain or other concerns. Prescriptions: Cephalexin Mh 500 mg [Keflex 500 mg] 500 mg PO QID #40 capsule Phenazopyridine HCl 200 mg [Pyridium 200 mg] 200 mg PO TID #10 tablet
[2020-08-13 17:04] LABS: Appearance CLOUDY (CLEAR); Bacteria RARE /HPF (NEGATIVE); Bilirubin NEGATIVE (NEGATIVE); Blood LARGE Ery/ul (0-5); Glucose NEGATIVE (NEGATIVE); Ketones NEGATIVE (NEGATIVE); Leukocyte Esterase LARGE (NEGATIVE); Nitrite NEGATIVE (NEGATIVE); Protein,Urine Dip NEGATIVE (Negative); RBC 51-100 /HPF (0-2); Specific Gravity 1.006 (1.005-1.025); Urobilinogen NEGATIVE mg/dL (0-1); WBC >100 /HPF (0-5)
[2020-08-13] MEDS ORDERED: KEFLEX 500 MG PO ONE (17:22)
[2020-08-13] MEDS ORDERED: PYRIDIUM 200 MG ONE (17:23)
[2020-08-13] MEDS ORDERED: KEFLEX 500 MG ONE (17:24)
[2020-08-13] MEDS ORDERED: PYRIDIUM 200 MG PO ONE (17:24)
== END 2020-08-13 17:48 | disposition home or self-care (01) ==
LOC: ED 16:34
DX: N39.0 Urinary tract infection, site not specified (principal)
CPT/HCPCS: 81001; 84703; 87077; 87086; 87186; 99283; A9270-GY

== ENCOUNTER 2020-12-21 14:39 | Emergency (ER) | payer OTHER ==
[2020-12-21] MEDS ORDERED: Sodium Chloride 0.9% 1000 ML 1,000 ML IV STA (15:02)
[2020-12-21 15:26] LABS: Appearance CLOUDY (CLEAR); Bacteria FEW /HPF (NEGATIVE); Bilirubin NEGATIVE (NEGATIVE); Blood NEGATIVE Ery/ul (0-5); Epithelial Cells MODERATE /HPF (FEW); Glucose NEGATIVE (NEGATIVE); Ketones SMALL (NEGATIVE); Leukocyte Esterase SMALL (NEGATIVE); Mucus SLIGHT /HPF (NEGATIVE); Nitrite NEGATIVE (NEGATIVE); Protein,Urine Dip 30 (Negative); Specific Gravity 1.025 (1.005-1.025); Urobilinogen NEGATIVE mg/dL (0-1)
[2020-12-21 15:30] LABS: Hematocrit 52.5 % (35-47); Hemoglobin 18.1 gm/dl (12.0-16.0); Mean Cell Volume 87.4 fl (78-100); Mean Corpuscular Hemoglobin 30.1 pg (26-32); Mean Corpuscular Hgb Concent. 34.5 g/dl (32-36); Mean Platelet Volume 11.9 fl (7.5-11.0); Platelet Count 239 K/mm3 (150-450); Red Blood Count 6.01 M/mm3 (4.1-5.4); Red Cell Distribution Width 12.8 % (11.5-14.0); White Blood Count 14.5 K/mm3 (4.0-10.5)
[2020-12-21 15:39] LABS: ALBUMIN 5.2 g/dL (3.5-5.0); ALKALINE PHOSPHATASE 106 U/L (38-126); ANION GAP 20.6 MEQ/L (5-15); BLOOD UREA NITROGEN 15 mg/dL (7-17); CHLORIDE 106 mmol/L (98-107); Calcium 10.4 mg/dL (8.4-10.2); Carbon Dioxide 20 mmol/L (22-30); Creatinine 1 0.87 mg/dL (0.52-1.04); EST GLOMERULAR FILTRATION RATE > 60.0 ML/MIN; Glucose 111 mg/dL (74-106); LIPASE 75 U/L (23-300); Potassium 4.3 mmol/L (3.5-5.1); SGOT/AST 25 U/L (14-36); SGPT/ALT 31 U/L (0-35); SODIUM 142 mmol/L (137-145)
[2020-12-21] MEDS ORDERED: Sodium Chloride 0.9% 1000 ML 1,000 ML ONE (16:07)
[2020-12-21] MEDS ORDERED: MORPHINE SULFATE 4 MG INJ IV ONE (16:30)
[2020-12-21] MEDS ORDERED: MORPHINE SULFATE 4 MG INJ ONE (16:32)
--- NOTE | 2020-12-21 16:39 | XRAY ---
Indication: Vomiting and diarrhea. Colitis. Multiple contiguous axial images obtained through the abdomen and pelvis using 80 cc Isovue 370 contrast. Comparison: August 07, 2020. Lung bases demonstrates stable small medial left lower lobe indeterminate noncalcified nodule. No infiltrate or effusion. Heart not enlarged. Noncontrasted stomach and bowel loops are nonobstructed. Normal appendix. No free fluid/air. Uterus demonstrates stable IUD. Spleen remains enlarged measuring 15.5 cm. Remaining liver, gallbladder, pancreas, spleen, adrenal glands, kidneys, ureters, bladder, uterus, and aorta are unremarkable for noncontrast exam. Osseous structures intact. Impression: 1. Again incidental splenomegaly and uterine IUD. 2. Stable small indeterminate left lower lobe noncalcified nodule. As suggested on CT chest August 07, 2020, recommend follow-up per Fleischner guidelines. 3. Remaining CT abdomen/pelvis with contrast exam is negative.
[2020-12-21] MEDS ORDERED: GI COCKTAIL 45 ML (Maalox/Lidocaine) PO ONE (16:56)
--- NOTE | 2020-12-21 16:56 | ERPHSYRPT ---
- History of Present Illness Time Seen by Provider: 12/21/20 14:55 Exam Limitations: no limitations Patient Subjective Stated Complaint: " I have been vomiting and having diarrhea since 7am this morning " Triage Nursing Assessment: Pt presents to ER with complaints of diffused upper abdominal pains, diarrhea, and vomiting. Pt states has had several rounds of diarrhea and vomiting since waking up this morning. Pt is alert and oriented x 3. Pt abdomen is soft but tender upon exam. Skin is pink, warm, and dry. Pt appears anxious and is dry heaving upon arrival. Physician History: Patient is a 20-year-old female presents to our ED with complaints of epigastric pain. Patient states that she developed nausea vomiting and diarrhea this morning. Symptoms have been constant. Patient is epigastric pain described as an ache that is well localized. No radiation. Pain- Timing/Duration: today Activities at Onset: none Quality: aching Abdominal Pain Onset Location: epigastric Pain Radiation: no radiation Severity of Pain-Max: moderate Severity of Pain-Current: mild Modifying Factors: Improves With: palpation Associated Symptoms: diarrhea, nausea, vomiting, No fever/chills, No headache, No loss of appetite, No syncope Previous symptoms: no prior history Allergies/Adverse Reactions: No Known Drug Allergies Allergy (Verified 12/21/20 14:56) Hx Tetanus, Diphtheria Vaccination/Date Given: No Hx Influenza Vaccination/Date Given: No Hx Pneumococcal Vaccination/Date Given: No Immunizations Up to Date: No Travel Risk - International Travel Have you traveled outside of the country in past 3 weeks: No - Coronavirus Screening Are you exhibiting any of the following symptoms?: Yes Symptoms: Vomiting/Diarrhea Close contact with a COVID-19 positive Pt in past 14-21 Days: No - Vaccine Status Have you recieved a Covid-19 vaccination: No - Review of Systems Constitutional: No Symptoms, No Fever, No Chills Eyes: No Symptoms Ears, Nose, & Throat: No Symptoms Respiratory: No Symptoms, No Cough, No Dyspnea Cardiac: No Symptoms, No Chest Pain, No Edema, No Syncope Abdominal/Gastrointestinal: No Symptoms, No Abdominal Pain, No Nausea, No Vomiting, No Diarrhea Genitourinary Symptoms: No Symptoms, No Dysuria Musculoskeletal: No Symptoms, No Back Pain, No Neck Pain Skin: No Symptoms, No Rash Neurological: No Symptoms, No Dizziness, No Focal Weakness, No Sensory Changes Psychological: No Symptoms Endocrine: No Symptoms Hematologic/Lymphatic: No Symptoms Immunological/Allergic: No Symptoms All Other Systems: Reviewed and Negative - Past Medical History Pertinent Past Medical History: Yes Neurological History: Seizures Psycho-Social History: Depression - Past Surgical History Past Surgical History: Yes - Social History Smoking Status: Current every day smoker Exposure to second hand smoke: No Drug Use: marijuana Patient Lives Alone: No - Female History Hx Last Menstrual Period: 12/15/20 Hx Now: No - Nursing Vital Signs Nursing Vital Signs: Initial Vital Signs Temperature 96.9 F 12/21/20 14:45 Pulse Rate 131 H 12/21/20 14:45 Respiratory Rate 16 12/21/20 14:45 Blood Pressure 111/80 12/21/20 14:45 O2 Sat by Pulse Oximetry 99 12/21/20 14:45 Pain Scale Pain Intensity 6 - Physical Exam General Appearance: no apparent distress, alert Eye Exam: PERRL/EOMI, eyes nml inspection Ears, Nose, Throat Exam: normal ENT inspection, pharynx normal, moist mucous membranes Neck Exam: normal inspection, non-tender, supple, full range of motion Respiratory Exam: normal breath sounds, lungs clear, airway intact, No respiratory distress Cardiovascular Exam: regular rate/rhythm, normal heart sounds, normal peripheral pulses Gastrointestinal/Abdomen Exam: soft, tenderness (Epigastric tenderness to palpation. Overlying soft tissue intact. No signs of trauma.), No mass, No pulsatile mass Back Exam: normal inspection, normal range of motion, No CVA tenderness, No vertebral tenderness Extremity Exam: normal inspection, normal range of motion, pelvis stable Neurologic Exam: alert, oriented x 3, cooperative, normal mood/affect, sensation nml, No motor deficits Skin Exam: normal color, warm, dry Lymphatic Exam: No adenopathy SpO2 Interpretation: normal SpO2: 100 O2 Delivery: Room Air - Course Nursing assessment & vital signs reviewed: Yes - CT Exams Abdomen/Pelvis CT Interpretation: Tele-radiologist Report (Incidental splenomegaly. IUD. Small stable indeterminate left lower lobe noncalcified nodule. This will require follow-up. Remaining CT abdomen pelvis with contrast is negative.) Ordered Tests: Active Orders 24 hr Category Date Time Status ABDOMEN AND PELVIS W CONTRAST [CT] Stat Exams 12/21/20 15:00 Completed CBC W DIFF Stat Lab 12/21/20 15:07 Results CMP Stat Lab 12/21/20 15:07 Completed CULTURE,URINE Stat Lab 12/21/20 15:00 Received LIPASE Stat Lab 12/21/20 15:07 Completed Manual Differential NC Stat Lab 12/21/20 15:07 Results Pathologist Review Stat Lab 12/21/20 15:07 Results TROPONIN Q3H Lab 12/21/20 15:07 Completed TROPONIN Q3H Lab 12/21/20 18:00 Ordered TROPONIN Q3H Lab 12/21/20 21:00 Ordered TROPONIN Q3H Lab 12/22/20 00:00 Ordered TROPONIN Q3H Lab 12/22/20 03:00 Ordered UA W/RFX UR CULTURE Stat Lab 12/21/20 15:00 Completed Medication Summary Discontinued Medications Generic Name Dose Route Start Last Admin Trade Name Freq PRN Reason Stop Dose Admin Al Hydrox/Mg Hydrox/Simethicone Confirm 12/21/20 17:53 Maalox Es 30 Ml Unit Dose Administered 12/21/20 17:54 Dose 30 ml .ROUTE .STK-MED ONE Sodium Chloride 1,000 mls @ 999 mls/hr 12/21/20 15:02 12/21/20 16:09 Sodium Chloride 0.9% 1000 Ml IV 12/21/20 16:02 999 mls/hr .Q1H1M STA Administration Sodium Chloride Confirm 12/21/20 16:07 Sodium Chloride 0.9% 1000 Ml Administered 12/21/20 16:08 Dose 1,000 mls @ ud .ROUTE .STK-MED ONE Ceftriaxone Sodium/Dextrose 1 g in 50 mls @ 100 mls/hr 12/21/20 16:58 12/21/20 17:55 Rocephin 1 Gm-D5w 50 Ml Bag IV 12/21/20 17:27 100 ml/hr STAT STA 100 mls/hr Administration Ceftriaxone Sodium/Dextrose Confirm 12/21/20 17:53 Rocephin 1 Gm-D5w 50 Ml Bag Administered 12/21/20 17:54 Dose 1 g in 50 mls @ ud IV .STK-MED ONE Lidocaine HCl Confirm 12/21/20 17:53 Xylocaine Hcl Viscous * Administered 12/21/20 17:54 Dose 15 ml .ROUTE .STK-MED ONE Magnesium Hydroxide 45 ml 12/21/20 16:56 12/21/20 17:57 Gi Cocktail 45 Ml (Maalox/Lidocaine) PO 12/21/20 16:57 45 ml STAT ONE Administration Morphine Sulfate 4 mg 12/21/20 16:30 12/21/20 16:33 Morphine Sulfate 4 Mg Inj IV 12/21/20 16:31 4 mg STAT ONE Administration Morphine Sulfate Confirm 12/21/20 16:32 Morphine Sulfate 4 Mg Inj Administered 12/21/20 16:33 Dose 4 mg .ROUTE .STK-MED ONE Lab/Rad Data: Laboratory Result Diagrams 12/21/20 15:07 12/21/20 15:07 Laboratory Results 12/21/20 12/21/20 12/21/20 Range/Units 15:07 15:07 15:07 WBC 14.5 H (4.0-10.5) K/mm3 RBC 6.01 H (4.1-5.4) M/mm3 Hgb 18.1 H (12.0-16.0) gm/dl Hct 52.5 H (35-47) % MCV 87.4 (78-100) fl MCH 30.1 (26-32) pg MCHC 34.5 (32-36) g/dl RDW 12.8 (11.5-14.0) % Plt Count 239 (150-450) K/mm3 MPV 11.9 H (7.5-11.0) fl Smear Path Review Pending Sodium 142 (137-145) mmol/L Potassium 4.3 (3.5-5.1) mmol/L Chloride 106 (98-107) mmol/L Carbon Dioxide 20 L (22-30) mmol/L Anion Gap 20.6 H (5-15) MEQ/L BUN 15 (7-17) mg/dL Creatinine 0.87 (0.52-1.04) mg/dL Estimated GFR > 60.0 ML/MIN Glucose 111 H (74-106) mg/dL Calcium 10.4 H (8.4-10.2) mg/dL Total Bilirubin 0.90 (0.2-1.3) mg/dL AST 25 (14-36) U/L ALT 31 (0-35) U/L Alkaline Phosphatase 106 (38-126) U/L Troponin I < 0.012 (0.000-0.034) ng/mL Serum Total Protein 9.0 H (6.3-8.2) g/dL Albumin 5.2 H (3.5-5.0) g/dL Lipase 75 (23-300) U/L Urine Color (YELLOW) Urine Appearance (CLEAR) Urine pH (5-6) Ur Specific [place] (1.005-1.025) Urine Protein (Negative) Urine Ketones (NEGATIVE) Urine Blood (0-5) Tate/ul Urine Nitrite (NEGATIVE) Urine Bilirubin (NEGATIVE) Urine Urobilinogen (0-1) mg/dL Ur Leukocyte Esterase (NEGATIVE) Urine WBC (Auto) (0-5) /HPF Urine RBC (Auto) (0-2) /HPF U Epithel Cells (Auto) (FEW) /HPF Urine Bacteria (Auto) (NEGATIVE) /HPF Urine Mucus (Auto) (NEGATIVE) /HPF Urine Culture Reflexed (NO) Urine Glucose (NEGATIVE) mg/dL 12/21/20 Range/Units 15:00 WBC (4.0-10.5) K/mm3 RBC (4.1-5.4) M/mm3 Hgb (12.0-16.0) gm/dl Hct (35-47) % MCV (78-100) fl MCH (26-32) pg MCHC (32-36) g/dl RDW (11.5-14.0) % Plt Count (150-450) K/mm3 MPV (7.5-11.0) fl Smear Path Review Sodium (137-145) mmol/L Potassium (3.5-5.1) mmol/L Chloride (98-107) mmol/L Carbon Dioxide (22-30) mmol/L Anion Gap (5-15) MEQ/L BUN (7-17) mg/dL Creatinine (0.52-1.04) mg/dL Estimated GFR ML/MIN Glucose (74-106) mg/dL Calcium (8.4-10.2) mg/dL Total Bilirubin (0.2-1.3) mg/dL AST (14-36) U/L ALT (0-35) U/L Alkaline Phosphatase (38-126) U/L Troponin I (0.000-0.034) ng/mL Serum Total Protein (6.3-8.2) g/dL Albumin (3.5-5.0) g/dL Lipase (23-300) U/L Urine Color NEVA (YELLOW) Urine Appearance CLOUDY (CLEAR) Urine pH 5.0 (5-6) Ur Specific [place] 1.025 (1.005-1.025) Urine Protein 30 (Negative) Urine Ketones SMALL (NEGATIVE) Urine Blood NEGATIVE (0-5) Tate/ul Urine Nitrite NEGATIVE (NEGATIVE) Urine Bilirubin NEGATIVE (NEGATIVE) Urine Urobilinogen NEGATIVE (0-1) mg/dL Ur Leukocyte Esterase SMALL (NEGATIVE) Urine WBC (Auto) 6-10 (0-5) /HPF Urine RBC (Auto) 3-5 (0-2) /HPF U Epithel Cells (Auto) MODERATE (FEW) /HPF Urine Bacteria (Auto) FEW (NEGATIVE) /HPF Urine Mucus (Auto) SLIGHT (NEGATIVE) /HPF Urine Culture Reflexed YES (NO) Urine Glucose NEGATIVE (NEGATIVE) mg/dL - Progress Progress: improved Progress Note: Patient reassessed. Pain significantly improved. Patient tolerating p.o. Patient states is ready for discharge. Patient received IV fluids. Patient has a leukocytosis. She also has a urinary tract infection. Patient received Rocephin IV. We will discharge patient home with prescription for Keflex. Patient requesting discharge at this time. Patient states that she will follow- up with a primary care doctor within 48 hours for reevaluation. She voices no other complaints concerns at this time. Patient is aware of her lung nodule. She is also aware that this will require a follow-up within 3 months time. Patient will require a follow-up CAT scan which will be ordered per her primary care doctor. Portions of this note were created with voice recognition technology. There may be grammatical, spelling, punctuation or sound alike errors 12/21/20 18:24 Counseled pt/family regarding: lab results, diagnosis, need for follow-up, rad results - Departure Departure Disposition: Home Clinical Impression: Lung nodule, Splenomegaly, UTI (urinary tract infection), Epigastric pain, Leukocytosis, Polycythemia, High anion gap metabolic acidosis, N&V (nausea and vomiting), Diarrhea Condition: Stable Critical Care Time: No Referrals: DOCTOR,NO FAMILY [Primary Care Provider] - MARCY HURT MD [ACTIVE STAFF] - Additional Instructions: You will need follow-up of a lung nodule observed on today's CAT scan. Discharge/Care Plan SOO HULL was seen on 12/21/20 in the Emergency Room. The patient was counseled regarding Diagnosis,Lab results, Imaging studies, need for follow up and when to return to the Emergency Room. Prescriptions given: Discharge Note I have spoken with the patient and/or caregivers. I have explained the patient's condition, diagnosis and treatment plan based on the information available to me at this time. I have answered the patient's and/or caregiver's questions and addressed any concerns. The patient and/or caregivers have as good understanding of the patient's diagnosis, condition and treatment plan as can be expected at this point. The vital signs have been stable. The patient's condition is stable and appropriate for discharge from the emergency department. The patient will pursue further outpatient evaluation with the primary care physician or other designated or consulting physician as outlined in the discharge instructions. The patient and/or caregivers are agreeable to this plan of care and follow-up instructions have been explained in detail. The patient and/or caregivers have received these instruction. The patient/and or caregivers are aware that any significant change in condition or worsening of symptoms should prompt an immediate return to this or the closest emergency department or call 911. Prescriptions: Ondansetron ODT 4 MG [Zofran Odt 4 mg] 4 mg PO Q6H PRN PRN #10 tablet PRN Reason: Vomiting
[2020-12-21] MEDS ORDERED: ROCEPHIN 1 Gm-D5w 50 ml Bag** 1 G/50 ML IVPB IV STA (16:58)
[2020-12-21] MEDS ORDERED: ROCEPHIN 1 Gm-D5w 50 ml Bag** 1 G/50 ML IVPB IV ONE (17:53)
[2020-12-21] MEDS ORDERED: MAALOX ES 30 ML UNIT DOSE ONE (17:53)
[2020-12-21] MEDS ORDERED: XYLOCAINE HCl Viscous ONE (17:53)
[2020-12-21 19:10] VITALS: BP 112/74; PULSE 86; O2SAT 98
== END 2020-12-21 19:10 | disposition home or self-care (01) ==
LOC: ED 14:39
DX: R91.1 Solitary pulmonary nodule; R16.1 Splenomegaly, not elsewhere classified; N39.0 Urinary tract infection, site not specified; R10.13 Epigastric pain; D72.829 Elevated white blood cell count, unspecified; D75.1 Secondary polycythemia; E87.2 Acidosis; R11.2 Nausea with vomiting, unspecified; R19.7 Diarrhea, unspecified
CPT/HCPCS: 36000; 36415; 74177; 80053; 81001; 83690; 84484; 85025; 87077; 87086; 87186; 96374; 99284; J0696; J2270; A9270-GY

== ENCOUNTER 2024-04-17 20:19 | Emergency (ER) | payer OTHER ==
--- NOTE | 2024-04-17 20:28 | ERPHSYRPT ---
- History of Present Illness Time Seen by Provider: 04/17/24 20:28 Source: patient, family Exam Limitations: no limitations Physician History: Pt had onset of vomiting with her 2 weeks ago. No vag bleeding or discharge. Discussed with pt and available family risks and benefits of testing/Tx including CBC, CMP, UA, Amylase, Lipase, swabs for Covid, RSV, Flu and zofran after risks/benefits dicussed and IVF, and they wish to proceed so these are ordered. Results discussed with pt and available family. Timing/Duration: day(s), week(s) Severity: moderate Associated Symptoms: nausea, vomiting, No abdominal pain Allergies/Adverse Reactions: No Known Drug Allergies Allergy (Verified 04/17/24 20:23) Home Medications: Doxylamine Succinate [Sleep Aid] 25 mg PO HS 04/17/24 [History] Pnv 119/Iron Fum/Folic Acid [ 19 Tablet] 1 tab PO DAILY 04/17/24 [History] Pyridoxine HCl (Vitamin B6) [Vitamin B6] 25 mg PO DAILY 04/17/24 [History] Hx Tetanus, Diphtheria Vaccination/Date Given: No Hx Influenza Vaccination/Date Given: No Hx Pneumococcal Vaccination/Date Given: No - Review of Systems Constitutional: No Fever, No Chills Eyes: No Symptoms Ears, Nose, & Throat: No Symptoms Respiratory: No Cough, No Dyspnea Cardiac: No Chest Pain, No Edema, No Syncope Abdominal/Gastrointestinal: Nausea, Vomiting, No Abdominal Pain, No Diarrhea Genitourinary Symptoms: No Dysuria Musculoskeletal: No Back Pain, No Neck Pain Skin: No Rash Neurological: No Dizziness, No Focal Weakness, No Sensory Changes Psychological: No Symptoms Endocrine: No Symptoms Hematologic/Lymphatic: No Symptoms Immunological/Allergic: No Symptoms All Other Systems: Reviewed and Negative - Past Medical History Pertinent Past Medical History: Yes Neurological History: Seizures Psycho-Social History: Depression - Past Surgical History Past Surgical History: Yes - Social History Smoking Status: Current every day smoker Exposure to second hand smoke: No Drug Use: marijuana Patient Lives Alone: No - Nursing Vital Signs Nursing Vital Signs: Initial Vital Signs Temperature 98.3 F 04/17/24 20:25 Pulse Rate 123 H 04/17/24 20:25 Respiratory Rate 20 04/17/24 20:25 Blood Pressure 146/104 04/17/24 20:25 O2 Sat by Pulse Oximetry 98 04/17/24 20:25 Pain Scale Pain Intensity 6 - Physical Exam General Appearance: no apparent distress, alert Eye Exam: PERRL/EOMI, eyes nml inspection Ears, Nose, Throat Exam: normal ENT inspection, TMs normal, pharynx normal, moist mucous membranes Neck Exam: normal inspection, non-tender, supple, full range of motion Respiratory Exam: normal breath sounds, lungs clear, No respiratory distress Cardiovascular Exam: regular rate/rhythm, normal heart sounds, normal peripheral pulses Gastrointestinal/Abdomen Exam: soft, normal bowel sounds, No tenderness, No mass Pelvic Exam: deferred Rectal Exam: deferred Back Exam: normal inspection, normal range of motion, No CVA tenderness, No vertebral tenderness Extremity Exam: normal inspection, normal range of motion, pelvis stable Neurologic Exam: alert, oriented x 3, cooperative, normal mood/affect, nml cerebellar function, nml station & gait, sensation nml, No motor deficits Skin Exam: normal color, warm, dry, No rash Lymphatic Exam: No adenopathy SpO2 Interpretation: normal SpO2: 98 O2 Delivery: Room Air - Course Nursing assessment & vital signs reviewed: Yes Ordered Tests: Active Orders 24 hr Category Date Time Status Heart Tones-ED STAT Care 04/17/24 20:43 Active IV Insertion STAT Care 04/17/24 20:41 Active AMYLASE Stat Lab 04/17/24 20:55 Completed CBC W DIFF Stat Lab 04/17/24 20:55 Completed CMP Stat Lab 04/17/24 20:55 Completed CULTURE,URINE Stat Lab 04/17/24 22:09 Received LIPASE Stat Lab 04/17/24 20:55 Completed Lactic Acid Stat Lab 04/17/24 21:00 Completed UA W/RFX UR CULTURE Stat Lab 04/17/24 22:09 Completed Medication Summary Discontinued Medications Generic Name Dose Route Start Last Admin Trade Name Darylq PRN Reason Stop Dose Admin Acetaminophen 1,000 mg 04/17/24 23:19 04/18/24 00:32 Acetaminophen 500 Mg Tablet PO 04/17/24 23:20 1,000 mg STAT STA Administration Acetaminophen Confirm 04/18/24 00:31 Acetaminophen 500 Mg Tablet Administered 04/18/24 00:32 Dose 1,000 mg .ROUTE .STK-MED ONE Sodium Chloride 1,000 mls @ 999 mls/hr 04/17/24 20:41 04/17/24 21:53 Sodium Chloride 0.9% 1000 Ml IV 04/17/24 21:41 Infused .Q1H1M STA Infusion Sodium Chloride Confirm 04/17/24 20:49 Sodium Chloride 0.9% 1000 Ml Administered 04/17/24 20:50 Dose 1,000 mls @ ud .ROUTE .STK-MED ONE Ondansetron HCl 4 mg 04/17/24 20:41 04/17/24 20:52 Ondansetron Hcl 4 Mg/2 Ml Vial IV 04/17/24 20:42 4 mg STAT ONE Administration Ondansetron HCl Confirm 04/17/24 20:49 Ondansetron Hcl 4 Mg/2 Ml Vial Administered 04/17/24 20:50 Dose 4 mg .ROUTE .STK-MED ONE Ondansetron HCl 4 mg 04/17/24 23:19 04/18/24 00:32 Ondansetron Hcl 4 Mg/2 Ml Vial IV 04/17/24 23:20 4 mg STAT ONE Administration Ondansetron HCl Confirm 04/18/24 00:31 Ondansetron Hcl 4 Mg/2 Ml Vial Administered 04/18/24 00:32 Dose 4 mg .ROUTE .STK-MED ONE Lab/Rad Data: Laboratory Result Diagrams 04/17/24 20:55 04/17/24 20:55 Laboratory Results 04/17/24 04/17/24 04/17/24 Range/Units 22:09 21:00 20:55 WBC (3.98-10.04) x10^3/uL RBC (3.93-5.22) x10^6/uL Hgb (11.2-15.7) g/dL Hct (34.1-44.9) % MCV (79.4-94.8) fL MCH (25.6-32.2) pg MCHC (32.2-35.5) g/dL RDW (11.7-14.4) % Plt Count (182-369) x10^3/uL MPV (9.4-12.3) fL Gran % (34.0-71.1) % Immature Gran % (Auto) (0.001-0.429) % Nucleat RBC Rel Count (0.00-0.2) % Eos # (Auto) (0.04-0.36) x10^3/uL Immature Gran # (Auto) (0.001-0.031) x10^3u/L Absolute Lymphs (auto) (1.18-3.74) x10^3/uL Absolute Monos (auto) (0.24-0.86) x10^3/uL Absolute Nucleated RBC (0.00-0.012) x10^3u/L Lymphocytes % (19.3-51.7) % Monocytes % (4.7-12.5) % Eosinophils % (0.7-5.8) % Basophils % (0.1-1.2) % Absolute Granulocytes (1.56-6.13) x10^3/uL Basophils # (0.01-0.08) x10^3/uL Sodium 134 L (135-145) mmol/L Potassium 3.6 (3.5-5.1) mmol/L Chloride 102 (98-107) mmol/L Carbon Dioxide 22 (22-30) mmol/L Anion Gap 14.1 (5-15) MEQ/L BUN 7 (7-17) mg/dL Creatinine 0.69 (0.52-1.04) mg/dL Estimated GFR 123.4 ML/MIN Glucose 101 (74-106) mg/dL Lactic Acid 1.4 (0.4-2.0) Calcium 9.5 (8.4-10.2) mg/dL Total Bilirubin 0.70 (0.2-1.3) mg/dL AST 31 (14-36) U/L ALT 40 H (0-35) U/L Alkaline Phosphatase 56 (38-126) U/L Serum Total Protein 7.3 (6.3-8.2) g/dL Albumin 4.4 (3.5-5.0) g/dL Amylase 52 (30-110) U/L Lipase 126 (23-300) U/L Urine Color Dark Yellow A (Yellow) Urine Appearance Cloudy A (Clear) Urine pH 6.0 (4.6-8.0) Ur Specific [place] >=1.030 A (1.005-1.030) Urine Protein 30 (Negative) Urine Glucose (UA) Negative (Negative) mg/dL Urine Ketones >=160 A (Negative) Urine Blood Negative (Negative) Urine Nitrite Negative (Negative) Urine Bilirubin Small A (Negative) Urine Urobilinogen 1.0 A (0.2) mg/dL Ur Leukocyte Esterase Moderate A (Negative) U Hyaline Cast (Auto) NONE SEEN (0-2) /LPF Urine Microscopic RBC 3-5 (0-5) /HPF Urine Microscopic WBC 21-50 A (0-5) /HPF Ur Epithelial Cells Many A (None Seen) /HPF Urine Bacteria Many A (None Seen) /HPF Urine Culture Reflexed YES (NO) Influenza Type A Ag (NEGATIVE) Influenza Type B Ag (NEGATIVE) RSV (PCR) (NEGATIVE) SARS-CoV-2 (PCR) (NEGATIVE) 04/17/24 04/17/24 Range/Units 20:55 20:55 WBC 9.1 (3.98-10.04) x10^3/uL RBC 4.99 (3.93-5.22) x10^6/uL Hgb 15.0 (11.2-15.7) g/dL Hct 42.6 (34.1-44.9) % MCV 85.4 (79.4-94.8) fL MCH 30.1 (25.6-32.2) pg MCHC 35.2 (32.2-35.5) g/dL RDW 11.9 (11.7-14.4) % Plt Count 200 (182-369) x10^3/uL MPV 12.4 H (9.4-12.3) fL Gran % 69.2 (34.0-71.1) % Immature Gran % (Auto) 0.3 (0.001-0.429) % Nucleat RBC Rel Count 0.0 (0.00-0.2) % Eos # (Auto) 0.09 (0.04-0.36) x10^3/uL Immature Gran # (Auto) 0.03 (0.001-0.031) x10^3u/L Absolute Lymphs (auto) 2.05 (1.18-3.74) x10^3/uL Absolute Monos (auto) 0.59 (0.24-0.86) x10^3/uL Absolute Nucleated RBC 0.00 (0.00-0.012) x10^3u/L Lymphocytes % 22.6 (19.3-51.7) % Monocytes % 6.5 (4.7-12.5) % Eosinophils % 1.0 (0.7-5.8) % Basophils % 0.4 (0.1-1.2) % Absolute Granulocytes 6.29 H (1.56-6.13) x10^3/uL Basophils # 0.04 (0.01-0.08) x10^3/uL Sodium (135-145) mmol/L Potassium (3.5-5.1) mmol/L Chloride (98-107) mmol/L Carbon Dioxide (22-30) mmol/L Anion Gap (5-15) MEQ/L BUN (7-17) mg/dL Creatinine (0.52-1.04) mg/dL Estimated GFR ML/MIN Glucose (74-106) mg/dL Lactic Acid (0.4-2.0) Calcium (8.4-10.2) mg/dL Total Bilirubin (0.2-1.3) mg/dL AST (14-36) U/L ALT (0-35) U/L Alkaline Phosphatase (38-126) U/L Serum Total Protein (6.3-8.2) g/dL Albumin (3.5-5.0) g/dL Amylase (30-110) U/L Lipase (23-300) U/L Urine Color (Yellow) Urine Appearance (Clear) Urine pH (4.6-8.0) Ur Specific [place] (1.005-1.030) Urine Protein (Negative) Urine Glucose (UA) (Negative) mg/dL Urine Ketones (Negative) Urine Blood (Negative) Urine Nitrite (Negative) Urine Bilirubin (Negative) Urine Urobilinogen (0.2) mg/dL Ur Leukocyte Esterase (Negative) U Hyaline Cast (Auto) (0-2) /LPF Urine Microscopic RBC (0-5) /HPF Urine Microscopic WBC (0-5) /HPF Ur Epithelial Cells (None Seen) /HPF Urine Bacteria (None Seen) /HPF Urine Culture Reflexed (NO) Influenza Type A Ag NEGATIVE (NEGATIVE) Influenza Type B Ag NEGATIVE (NEGATIVE) RSV (PCR) NEGATIVE (NEGATIVE) SARS-CoV-2 (PCR) NEGATIVE (NEGATIVE) - Progress Progress: improved, re-examined Progress Note: 04/18/24 00:09 we are trying to reach the pts OB to discuss med tx and this is taking extra time. 04/18/24 01:[address] Stevens the Ob deputy probation officer and she advises that Tx with Keflex and zofran should be fine and so we will proceed. 04/18/24 01:04 pt and family are aware of the limitations of testing performed and that additional pathology could still be evolving undetected and are comfortable for outpt DC and f/u with OB as planned and trial of zofran and keflex. Discussed with Dr.: Other (Dr. Stevens OB deputy probation officer) Will see patient in: office Counseled pt/family regarding: lab results, diagnosis, need for follow-up Medical Desision Making - Independent Historian Additional History obtained from: Family - Discussion of managment Reviewed:: Test results, Need for additional workup Agreed on:: Treatment plan, need for follow-up - Diagnostic Testing Diagnostic test were ordered, analyzed, and reviewed by me: Yes - Risk of complications The pt has a mod risk of morbidity or mortality based on: Need for prescription drug management - Departure Departure Disposition: Home Clinical Impression: UTI (urinary tract infection), N&V (nausea and vomiting) Condition: Good Critical Care Time: No Referrals: DOCTOR,NO FAMILY [Primary Care Provider] - Follow up/PCP as directed Instructions: Urinary tract infections in , Hyperemesis Gravidarum (DC) Additional Instructions: Followup with your OB this next week and return meantime if further problems vomiting, any bleeding or abdominal pain. Prescriptions: Ondansetron ODT 4 MG [Zofran Odt 4 mg] 4 mg PO Q6HPRN PRN #14 tab PRN Reason: Nausea Cephalexin Mh 500 mg [Keflex 500 mg] 500 mg PO TID 7 Days #21 cap
[2024-04-17 20:37] VITALS: TEMP 98.3
[2024-04-17] MEDS ORDERED: Zofran 4 MG/2 ML VIAL ONE (20:49)
[2024-04-17] MEDS ORDERED: Sodium Chloride 0.9% 1000 ML 1,000 ML ONE (20:49)
[2024-04-17] MEDS: Sodium Chloride 0.9% 1000 ML 1,000 ML IV STA (20:52)
[2024-04-17] MEDS: Zofran 4 MG/2 ML VIAL IV ONE (20:52)
[2024-04-17 20:58] LABS: Absolute Neutrophil Ct (ANC) 6.29 x10^3/uL (1.56-6.13); BASOPHIL % 0.4 % (0.1-1.2); Basophil (Absolute #) 0.04 x10^3/uL (0.01-0.08); Eosinophil (Absolute #) 0.09 x10^3/uL (0.04-0.36); Hematocrit 42.6 % (34.1-44.9); IMMATURE GRAN # 0.03 x10^3u/L (0.001-0.031); IMMATURE GRAN % 0.3 % (0.001-0.429); Lymphocyte (Absolute #) 2.05 x10^3/uL (1.18-3.74); Lymphocytes % 22.6 % (19.3-51.7); Mean Cell Volume 85.4 fL (79.4-94.8); Mean Corpuscular Hemoglobin 30.1 pg (25.6-32.2); Mean Corpuscular Hgb Concent. 35.2 g/dL (32.2-35.5); Mean Platelet Volume 12.4 fL (9.4-12.3); Monocyte (Absolute #) 0.59 x10^3/uL (0.24-0.86); Monocytes % 6.5 % (4.7-12.5); Neutrophil % 69.2 % (34.0-71.1); Platelet Count 200 x10^3/uL (182-369); Red Blood Count 4.99 x10^6/uL (3.93-5.22); Red Cell Distribution Width 11.9 % (11.7-14.4); White Blood Count 9.1 x10^3/uL (3.98-10.04)
[2024-04-17 21:15] LABS: ALBUMIN 4.4 g/dL (3.5-5.0); ANION GAP 14.1 MEQ/L (5-15); BILIRUBIN,TOTAL 0.7 mg/dL (0.2-1.3); Calcium 9.5 mg/dL (8.4-10.2); Creatinine 1 0.69 mg/dL (0.52-1.04); EST GLOMERULAR FILTRATION RATE 123.4 ML/MIN; Potassium 3.6 mmol/L (3.5-5.1); Total Protein 7.3 g/dL (6.3-8.2)
[2024-04-17 21:35] LABS: INFLUENZA A NEGATIVE (NEGATIVE); INFLUENZA B NEGATIVE (NEGATIVE); RESPIRATORY SYNCTIAL VIRUS NEGATIVE (NEGATIVE); SARS-CoV-2 Xpert Express NEGATIVE (NEGATIVE)
[2024-04-17 22:25] LABS: Appearance Cloudy (Clear); Bacteria Many /HPF (None Seen); Bilirubin Small (Negative); Blood Negative (Negative); Epithelial Cells Many /HPF (None Seen); Glucose, Urine Negative (Negative); Hyaline Casts NONE SEEN /LPF (0-2); Ketones >=160 (Negative); Leukocyte Esterase Moderate (Negative); Nitrite Negative (Negative); Protein,Urine Dip 30 (Negative); Specific Gravity >=1.030 (1.005-1.030); WBC 21-50 /HPF (0-5)
[2024-04-18] MEDS ORDERED: TYLENOL EXTRA STRENGTH 500 MG ONE (00:31)
[2024-04-18] MEDS ORDERED: Zofran 4 MG/2 ML VIAL ONE (00:31)
[2024-04-18] MEDS: TYLENOL EXTRA STRENGTH 500 MG PO STA (00:32)
[2024-04-18] MEDS: Zofran 4 MG/2 ML VIAL IV ONE (00:32)
[2024-04-18 01:05] VITALS: O2SAT 98
[2024-04-18] MEDS ORDERED: KEFLEX 500 MG ONE (01:05)
[2024-04-18] MEDS: KEFLEX 500 MG PO ONE (01:06)
[2024-04-18 01:09] VITALS: BP 117/84; PULSE 83; RESP 26
== END 2024-04-18 01:20 | disposition home or self-care (01) ==
LOC: ED 20:19
DX: O21.9 Vomiting of pregnancy, unspecified (principal); O23.40 Unspecified infection of urinary tract in pregnancy, unspecified trimester; N39.0 Urinary tract infection, site not specified; Z79.899 Other long term (current) drug therapy; Z72.0 Tobacco use
CPT/HCPCS: 0241U; 36415; 80053; 81001; 82150; 83605; 83690; 85025; 87086; 96374; 96376; 99285; 99284; J2405; A9270-GY

== ENCOUNTER 2024-04-26 17:21 | Emergency (ER) | payer OTHER | END 2024-04-26 20:08 | disposition left against medical advice (07) | LOC: ED 17:21 | DX: Z53.21 Procedure and treatment not carried out due to patient leaving prior to being seen by health care provider (principal) ==